=== PATIENT | male | born 1940 | race Asian ===

== ENCOUNTER 2023-05-28 09:38 | Outpatient (CLI) | payer MEDICARE | END 2023-05-28 09:39 | disposition home or self-care (01) | LOC: CSHULT 09:38 | PROVIDERS: ATTEND Family Medicine | DX: R94.6 Abnormal results of thyroid function studies (principal); E04.2 Nontoxic multinodular goiter; E07.89 Other specified disorders of thyroid | CPT/HCPCS: 76536 ==